=== PATIENT | female | born 1930 | race Caucasian/White ===

== ENCOUNTER 2016-08-26 22:59 | Inpatient (IN) | payer OTHER ==
--- NOTE | ~2016-08-26 | OP ---
Record Of Operation [facility] [address] [place]. [address] NAME: OTIS HENRY : [birth year] STATUS : ADM IN [facility]#: [id number] AGE: 86 ADM/REG DATE : 08/27/16 MR#: [id number] REPORT SERV DATE: 08/27/16 DICTATED BY: CLAUDIA VARGHESE DATE: 08/27/16 REPORT STATUS : Draft TRANSCRIBED BY: MODL DATE: 08/27/16 DATE OF PROCEDURE: 08/27/2016 PREOPERATIVE DIAGNOSIS: Left displaced femoral neck fracture. POSTOPERATIVE DIAGNOSIS: Left displaced femoral neck fracture. PROCEDURE PERFORMED: Left hip hemiarthroplasty, due to fracture. SURGEON: Claudia Varghese M.D. SUPERVISOR SPECIAL EFFECTS: Tariq Walker. ANESTHESIA: General with local infusion. PROCEDURE IN DETAIL: The patient was clearly identified, and after obtaining informed consent, she was brought to the operating room at [facility], where she was induced under general anesthesia, placed carefully in the right lateral decubitus position, and as her left lower extremity and flank were prepped and draped in usual manner. This concluded, after an appropriate time-out procedure was performed. Through an approximately 3 inch incision, the skin was divided, fascial planes were elevated. Hemostasis was obtained with electrocautery and the piriformis was identified, tagged, divided, and retracted over the sciatic nerve deep in the wound. Subsequently, the capsule and some short rotators were then gently divided to expose the hip joint, with the fracture site identified, old hematoma was exposed from the fracture site itself, and internally rotating the hip and thigh, the femoral neck was exposed, and with Homans to protect the surrounding tissues, a femoral neck cut was made and residual bone was removed. The femoral head was then uneventfully removed and the ligamentum and depths of the wound was divided without evidence of pathology. There was no chondromalacia noted. Subsequently, the trialing was felt to be appropriate with a 43 head, and then the proximal femur was exposed, structures posteromedial to the greater trochanter are removed, followed by cookie-cutter, canal finder, lateralizer, and reaming to size 6. Subsequently, carefully broaching to size 6 was excellent fit, fill, and stability. A calcar planer was utilized and subsequently with a standard offset 1.5 length, there was equal leg length, excellent range of motion, stability, and no impingement. The lesser trochanter was at the appropriate position on the ischium, and there was minimal push-pull. This concluded, and the trial was removed. The permanent implants were applied. Copious irrigation was performed. Tranexamic acid was utilized and the joints were then carefully closed in layers including capsule, piriformis, lateral fascia, deep fascia and skin. At which point, the leg was cleansed and dressed. The patient was then allowed to awaken and she was transferred to the recovery room in stable condition having tolerated the procedure well. ESTIMATED BLOOD LOSS: 50 mL. FLUID: 1000 mL. Record Of Operation [facility] [address] [place]. [address] NAME: OTIS HENRY : [birth year] STATUS : ADM IN [facility]#: [id number] AGE: 86 ADM/REG DATE : 08/27/16 MR#: [id number] REPORT SERV DATE: 08/27/16 DICTATED BY: CLAUDIA VARGHESE DATE: 08/27/16 REPORT STATUS : Draft TRANSCRIBED BY: HEMANT DATE: 08/27/16 TOURNIQUET TIME: None. PATHOLOGY: Sent specimen. MICROBIOLOGY: None. COMPLICATIONS: None. SPONGE AND NEEDLE COUNTS: Reportedly correct. ANTIBIOTICS: Administered appropriately preoperatively in order to be discontinued within 23 hours. IMPLANTS: DePuy Hip System, femur Anderson, size 6, +1.5/28/43 bipolar head. WOLF/HEMANT Claudia Varghese M.D. / [id number] CC: Mik Hernadez M.D.
--- NOTE | ~2016-08-26 | DS ---
Discharge Summary [facility] [address] [place]. [address] NAME: OTIS HENRY : [birth year] STATUS : DIS IN PAT#: [id number] AGE: 86 ADM/REG DATE : 08/27/16 MR#: [id number] REPORT SERV DATE: 09/02/16 DICTATED BY: KULWANT SCHREIBER DATE: 09/01/16 REPORT STATUS : Draft TRANSCRIBED BY: MODKirk DATE: 09/01/16 ADMISSION DATE: 08/27/2016 DISCHARGE DATE: 08/31/2016 REASON FOR ADMISSION: This is an 86-year-old female, who had presented after a fall at home with closed head injury and examination in the ER included a left hip x-ray which would show an intertrochanteric fracture. She also hit her head against some concrete in her fall, and a CT scan of the brain did not reveal any acute intracranial pathology. DISCHARGE DIAGNOSES: 1. Left hip fracture status post total hip arthroplasty. 2. Acute blood loss anemia status post surgery. 3. Atrial fibrillation with RVR. 4. Coronary artery disease. 5. Delirium secondary to narcotics, now resolved. 6. Hypothyroid. HOSPITAL COURSE: 1. Left hip fracture. Dr. Varghese was consulted, and he would perform left hip hemiarthroplasty on 08/27/2016. The patient tolerated procedure well, and she had some postop confusion related to anesthesia and narcotics that would resolve. Additionally, she would have some acute blood loss anemia with her hemoglobin dropping down to 8.9, but it was stable and did not require any transfusion. 2. Atrial fibrillation with RVR. The patient postoperatively did go into atrial fibrillation and with rapid ventricular rate. The patient was placed on oral Cardizem as well as beta lorena initially. Then Dr. Somers placed the patient on IV amiodarone drip. They were unable to convert her out of atrial fibrillation with that but we have been able to achieve rate control with oral Cardizem and oral metoprolol. The patient is on Coumadin, leaving the hospital related to the hip surgery and her INR at discharge 1.7. DISCHARGE CONDITION: Stable. DISCHARGE MEDICATIONS: 1. Metoprolol 25 mg p.o. b.i.d. 2. Oxybutynin 5 mg p.o. daily. 3. Warfarin. 4. Ferrous sulfate 300 mg p.o. b.i.d. 5. Synthroid 88 mcg p.o. daily. 6. Aspirin 325 mg p.o. daily. 7. Diltiazem CD 120 mg p.o. b.i.d. 8. Colace 100 mg p.o. b.i.d. DISCHARGE PLAN: The patient is discharged to [facility] for [facility] rehab, will follow up with primary care after rehab, Tomy Dupont Junior. Discharge Summary [address] [place]. [address] NAME: OTIS HENRY : [birth year] STATUS : DIS IN PAT#: [id number] AGE: 86 ADM/REG DATE : 08/27/16 MR#: [id number] REPORT SERV DATE: 09/02/16 DICTATED BY: KULWANT SCHREIBER DATE: 09/01/16 REPORT STATUS : Draft TRANSCRIBED BY: HEMANT DATE: 09/01/16 TDR/HEMANT Kulwant Schreiber APN / [id number] CC: Mik Webber M.D. John Nash, M.D. Ondrej J Lisy, M.D.
--- NOTE | ~2016-08-26 | HP ---
History And Physical [facility] [address] [facility] [place]. [address] NAME: OTIS HENRY : [birth year] STATUS : ADM IN [facility]#: [id number] AGE: 86 ADM/REG DATE : 08/27/16 MR#: [id number] REPORT SERV DATE: 08/27/16 DICTATED BY: LUCAS CASTANO DATE: 08/27/16 REPORT STATUS : Draft TRANSCRIBED BY: MODL DATE: 08/27/16 DATE OF ADMISSION: 08/26/2016 CHIEF COMPLAINT: Fall at home today and closed head injury. HISTORY OF PRESENT ILLNESS: This is an 86-year-old female, who presents to the emergency room at [facility] with the above-mentioned complaint. History is obtained from the patient, her daughter who is at bedside, and reviewing data available on the Spiration system. According to available data, Ms. Henry was at home in her usual state of health when she went out to the concrete porch where she usually hangs up her washed clothes. She was doing this today and apparently got out of her wheelchair and while hanging her clothes, one of her legs suddenly gave way. She fell to the concrete floor and started experiencing some pain, but unfortunately was not able to get up at all. She scooted into the house, was able to call for help, and subsequently the patient was brought to the emergency room via EMS. In the emergency room, initial workup including an x-ray of her hip showed a left intertrochanteric fracture. When she fell down, she also hit her head against the concrete and in the emergency room, a CT scan of the brain did not reveal any acute intracranial pathology. The ER had spoken with Dr. Varghese, who requested admission under the Hospitalist Service and he would consult tomorrow. At the time of my evaluation, Ms. Henry denied any chest pain, palpitations, or orthopnea. She was very pleasant and was entertaining to talk to. She denied any cough, fever, chills, nausea, vomiting, or diarrhea. She has not had any hematemesis, hematochezia, or hematuria. No other history of recent travel or exposures. PAST MEDICAL HISTORY: Significant for history of essential hypertension, coronary artery disease with history of myocardial infarction, hypothyroidism. SOCIAL HISTORY: She does not smoke, drink, or use recreational drugs. FAMILY HISTORY: Noncontributory. MEDICATIONS: At home were reviewed by me in the chart today and reordered by me. REVIEW OF SYSTEMS: As in history of present illness. All other systems were reviewed in detail and are quite unremarkable. PHYSICAL EXAMINATION: GENERAL: This is a pleasant 86-year-old, not in any acute distress. HEENT: Her head is atraumatic, normocephalic. She is alert, awake, oriented to time, place, and person. Pupils are equal, reacting to light and accommodating. External ocular muscles are intact. Membranes are moist and pink. Sclerae are nonicteric. History And Physical [address] [address] NAME: OTIS HENRY : [birth year] STATUS : ADM IN [facility]#: [id number] AGE: 86 ADM/REG DATE : 08/27/16 MR#: [id number] REPORT SERV DATE: 08/27/16 DICTATED BY: LUCAS CASTANO DATE: 08/27/16 REPORT STATUS : Draft TRANSCRIBED BY: HEMANT DATE: 08/27/16 NECK: Supple with no jugular venous distention, lymphadenopathy, or thyromegaly. LUNGS: Clear to auscultation with no wheezes, rubs, or crackles. HEART: Heart sounds were regular with no murmurs, rubs, or gallops. ABDOMEN: Soft, nontender. Bowel sounds are present. EXTREMITIES: Showed no cyanosis, clubbing, or edema. NEUROLOGIC: Grossly intact. No focal sensory or motor deficits. Higher functions appeared intact. VITAL SIGNS: Today showed a temperature of 98.7, pulse 86, respirations 16 a minute, blood pressure was 170/78, oxygen saturations were 98%, breathing 2 L of oxygen via nasal cannula. LABORATORY DATA: Reviewed on the Spiration system showed a sodium of 140, potassium 4.3, chloride 107, CO2 of 26, BUN was 19 with a creatinine of 1.14. We have no prior records here. Blood glucose was 130. CBC showed a white blood cell count of 6100, hemoglobin was 11, hematocrit 33.5, and platelet count was 162,000. Troponin was 0.02 today. Prothrombin time was 14.7 with an INR of 1.2. Urinalysis was not done. Films of the x-ray of her hip were reviewed by me on the PACS today and CT of the brain was also reviewed. There is left- sided intertrochanteric fracture. CT of the brain did not reveal any acute intracranial pathology. A 12-lead EKG done in the emergency room was reviewed and interpreted by me. There is normal sinus rhythm at a rate of [address] changes. IMPRESSION: 1. Fall at home. 2. Closed head injury. 3. Left hip pain. 4. Left intertrochanteric fracture. 5. Hypertension. 6. Coronary artery disease with myocardial infarction. 7. Hypothyroidism. PLAN: We will admit Ms. Henry to the Hospitalist Service to the med/surg floor for close monitoring. We will keep her n.p.o. for now, offer pain control with intravenous Dilaudid in small doses on an as-needed basis, and go ahead and consult Dr. Gorge Varghese to see her in the morning. We will go ahead and continue all other medications and treatments at this time. We will follow this with chemistry in the morning along with CBC and TSH as well. I have discussed the above plans with the patient and the patient's daughter. Their questions were answered and they are agreeable to the above recommendations. Further recommendations will follow after Dr. Varghese has had a chance to see the patient. Hospitalist Service will be following her during her stay here. /HEMANT Lucas Castano M.D. History And Physical [address] [address] NAME: OTIS HENRY : [birth year] STATUS : ADM IN PAT#: [id number] AGE: 86 ADM/REG DATE : 08/27/16 MR#: [id number] REPORT SERV DATE: 08/27/16 DICTATED BY: LUCAS CASTANO DATE: 08/27/16 REPORT STATUS : Draft TRANSCRIBED BY: HEMANT DATE: 08/27/16 / [id number] CC: Tomy Dupont M.D.
--- NOTE | ~2016-08-26 | CN ---
Consultation Report [facility] [address] [place]. [address] NAME: OTIS HENRY : [birth year] STATUS : ADM IN PAT#: [id number] AGE: 86 ADM/REG DATE : 08/27/16 MR#: [id number] REPORT SERV DATE: 08/30/16 DICTATED BY: OKSANA DRIVER DATE: 08/29/16 REPORT STATUS : Draft TRANSCRIBED BY: HEMANT DATE: 08/29/16 CARDIOLOGY CONSULTATION DATE OF CONSULTATION: LOCATION: Room 422. REFERRING REASON: Atrial fibrillation at the time of left hip surgery. HISTORY OF PRESENT ILLNESS: This is a pleasant 86-year-old white female with poor functional performance status, who resides at home with her family. She has been wheelchair-bound for the last six months. She has very poor balance, but is still trying to do few steps occasionally. She has frequent falls according to her daughter that I had the opportunity to interview, up to six over the last six months with some trauma. With the most recent one, she fell a few days ago on her head. There was initial concern for stroke and bleeding, but CT of the brain was negative for bleeding, some chronic atrophy. She was in sinus rhythm initially. She does not have a documented prior history of atrial fibrillation. At the time of the left hip surgery on 08/[address] Varghese, when she developed left hip fracture, she went into atrial fibrillation and remained in atrial fibrillation since then. She is not on anticoagulation, but there was an attempt to rate control her. She has some decline in hemoglobin from 11.5 to 8.9 currently. Also, her platelet count is borderline 100,000. No obvious bleeding. She has not required transfusion yet. The patient denied any palpitations, chest pain, or shortness of breath. She is a poor historian. Most of the discussion was done with several family members including daughter. The patient reportedly had normal coronary arteriogram in 2000 elsewhere without clear evidence of coronary artery disease. The rest of review of systems is negative. PAST MEDICAL HISTORY: 1. Frequent falls with poor balance. 2. Poor functional performance, the patient is currently wheelchair bound. 3. Hypertension. 4. Reportedly normal coronary arteriogram in 2001 elsewhere. 5. History of hypothyroidism. 6. Remote history of hysterectomy. 7. Remote history of lumbar spine surgery. ALLERGIES: SULFA HOME MEDICATIONS: Amlodipine 5 mg once a day, Synthroid, Prinivil 10 mg once a day, oxybutynin, Tylenol, Dilaudid p.r.n., Phenergan, and albuterol. Currently, she was started on Cardizem short-acting 30 mg q.6 hours and metoprolol 25 mg q.8 hours. SOCIAL HISTORY: The patient is . She is now wheelchair bound. Lives with her family. Walks occasionally with a walker, but has frequent falls. She has a remote history Consultation Report [address] [place]. [address] NAME: OTIS HENRY : [birth year] STATUS : ADM IN [facility]#: [id number] AGE: 86 ADM/REG DATE : 08/27/16 MR#: [id number] REPORT SERV DATE: 08/30/16 DICTATED BY: OKSANA DRIVER DATE: 08/29/16 REPORT STATUS : Draft TRANSCRIBED BY: HEMANT DATE: 08/29/16 of smoking, 40 years ago, smoked for several years. Denies drinking alcohol or using street drugs. FAMILY HISTORY: Negative for sudden cardiac , premature coronary artery disease in the family. PHYSICAL EXAMINATION: GENERAL: Elderly female, oriented x3, is sitting on a chair. VITAL SIGNS: Blood pressure 130/67, heart rate 100 to 110, irregularly irregular, atrial fibrillation. HEENT - Pupils reactive to light and accommodation. Moist mucosa membrane. NECK: No JVD. Normal carotid upstroke. No carotid bruits. LUNGS: Decreased breath sounds, but no crackles. ABDOMEN: Distended, nontender. EXTREMITIES: Lower extremity decreased pedal pulses bilaterally, but no edema. SKIN: Warm with normal turgor. MUSCULOSKELETAL - No kyphosis. NEURO/PSY - Alert and oriented. Nonfocal. DATA: CBC remarkable for hemoglobin of 8.9, platelet count of 100,000. Troponin is negative. Electrolytes within normal limits. A CT of the brain as above. Initial electrocardiogram revealed normal sinus rhythm, 83 beats per minute on 08/26. On 08/27, she went into atrial fibrillation with rapid ventricular response with nonspecific ST-segment changes. Currently, she is in atrial fibrillation with rapid ventricular response on monitor. Echocardiogram on 08/29, interpreted by myself, revealed preserved systolic function with EF 55% with mild LVH and moderate left atrial enlargement. There is mild aortic valve regurgitation. ASSESSMENT AND PLAN: 1. Status post traumatic fall with left hip fracture. 2. Status post left hip surgery. 3. Frequent falls and poor balance. 4. Atrial fibrillation with rapid ventricular response, currently asymptomatic. 5. Anemia. Under this picture, we reviewed the situation with the patient and her several family members and Dr. Anderson. Our goal should be rate control atrial fibrillation. Her blood pressure now is normal. She is not a good candidate for anticoagulation due to the frequent traumatic falls and now anemia postoperatively. Cardioversion would require anticoagulation. We may consider intravenous amiodarone in an attempt to convert her back to sinus rhythm. If this will be unsuccessful, we may need to continue rate control approach. She should be using aspirin if okay with Surgery. Fortunately, she has preserved systolic function. She is now asymptomatic. Consultation Report [address] [place]. [address] NAME: OTIS HENRY : [birth year] STATUS : ADM IN [facility]#: [id number] AGE: 86 ADM/REG DATE : 08/27/16 MR#: [id number] REPORT SERV DATE: 08/30/16 DICTATED BY: OKSANA DRIVER DATE: 08/29/16 REPORT STATUS : Draft TRANSCRIBED BY: HEMANT DATE: 08/29/16 MANI/HEMANT Oksana Driver M.D. / [id number] CC: Kar Jackson M.D.
[2016-08-26 22:41] LABS: BASOPHILS 0 %; EOSINOPHILS 0.3 %; EOSINOPHILS ABSOLUTE 0.02 10/3/uL (0.0-0.53); HEMATOCRIT 33.5 % (36.0-48.0); IMMATURE GRANULOCYTES 0.2 %; IMMATURE GRANULOCYTES ABSOLUTE 0.01 10/3/uL (0.0-0.11); LYMPHOCYTES ABSOLUTE 1.04 10/3/uL (0.67-4.30); MEAN CORPUS HGB CONC 32.8 g/dL (32.0-36.0); MEAN CORPUSCULAR HEMOGLOB 30.2 pg (26.0-34.0); MEAN PLATELET VOLUME 11.1 fL (9.2-13.0); MONOCYTES ABSOLUTE 0.55 10/3/uL (0.21-1.20); NEUTROPHILS 73.5 %; NEUTROPHILS ABSOLUTE 4.48 10/3/uL (2.02-8.40); PLATELET COUNT 152 10/3/uL (150-400); RBC DISTRIBUTION WIDTH 16.5 % (12.0-16.0); RED CELL COUNT 3.64 10/6/uL (4.0-5.6); WHITE BLOOD CELLS 6.1 10/3/uL (4.5-10.5)
[2016-08-26 22:42] LABS: MANUAL DIFF NO %
[2016-08-26 22:53] LABS: INTERNATIONAL NORMAL RATI 1.2 UNITS (-); PARTIAL THROMBO TIME 25.2 SEC (22.5-37.2); PROTIME (NOT ORD) 14.7 SEC (12.0-14.5)
[2016-08-26 22:56] LABS: BUN (BLOOD UREA NITROGEN) 19 MG/DL (6-23); CALCIUM, SERUM 9.3 MG/DL (8.5-10.4); CHEST PAIN PROFILE TAT 0 Hrs 21 Mins; CHLORIDE, SERUM 107 MMOL/L (96-112); CO2 (CARBON DIOXIDE) 26 MMOL/L (24-34); CREATININE 1.14 MG/DL (0.55-1.02); GFR AFRICAN AMERICAN 50 ML/MIN (>=60); GFR NON AFRICAN AMERICAN 43 ML/MIN (>=60); GLUCOSE, SERUM 130 MG/DL (60-99); POTASSIUM, SERUM 4.3 MMOL/L (3.5-5.3); SODIUM, SERUM 140 MMOL/L (135-148); TROPONIN I <0.02 NG/ML (<0.05)
[2016-08-26] MEDS ORDERED: DITRO5 PO (23:47)
[2016-08-26] MEDS ORDERED: PRIN10 PO (23:47)
[2016-08-26] MEDS ORDERED: LEVOTHYROXIN88 MCG PO (23:48)
[2016-08-26] MEDS ORDERED: NITROSTAT0.4 MG SL (23:48)
[2016-08-26] MEDS ORDERED: NORV5 PO (23:48)
[2016-08-27 04:15] LABS: BASOPHILS 0 %; EOSINOPHILS 1.6 %; EOSINOPHILS ABSOLUTE 0.06 10/3/uL (0.0-0.53); HEMATOCRIT 31.4 % (36.0-48.0); HEMOGLOBIN 10.2 g/dL (12.0-16.0); IMMATURE GRANULOCYTES 0.3 %; IMMATURE GRANULOCYTES ABSOLUTE 0.01 10/3/uL (0.0-0.11); LYMPHOCYTES 27.2 %; MEAN CORPUS HGB CONC 32.5 g/dL (32.0-36.0); MEAN CORPUSCULAR HEMOGLOB 30.3 pg (26.0-34.0); MEAN CORPUSCULAR VOLUME 93.2 fL (80-100); MEAN PLATELET VOLUME 10.5 fL (9.2-13.0); MONOCYTES 12.2 %; MONOCYTES ABSOLUTE 0.45 10/3/uL (0.21-1.20); NEUTROPHILS 58.7 %; NEUTROPHILS ABSOLUTE 2.16 10/3/uL (2.02-8.40); PLATELET COUNT 123 10/3/uL (150-400); RBC DISTRIBUTION WIDTH 16.8 % (12.0-16.0); RED CELL COUNT 3.37 10/6/uL (4.0-5.6); WHITE BLOOD CELLS 3.7 10/3/uL (4.5-10.5)
[2016-08-27 04:18] LABS: MANUAL DIFF NO %
[2016-08-27 04:39] LABS: BUN (BLOOD UREA NITROGEN) 18 MG/DL (6-23); CALCIUM, SERUM 8.6 MG/DL (8.5-10.4); CHLORIDE, SERUM 107 MMOL/L (96-112); CO2 (CARBON DIOXIDE) 26 MMOL/L (24-34); CREATININE 0.94 MG/DL (0.55-1.02); GFR AFRICAN AMERICAN 63 ML/MIN (>=60); GFR NON AFRICAN AMERICAN 54 ML/MIN (>=60); GLUCOSE, SERUM 106 MG/DL (60-99); PHOSPHORUS, SERUM 2.9 MG/DL (2.5-4.5); POTASSIUM, SERUM 4.2 MMOL/L (3.5-5.3); SODIUM, SERUM 142 MMOL/L (135-148)
[2016-08-27 06:47] LABS: ASCORBIC ACID (UR NOT ORDER) NEG (NEG); BILIRUBIN, URINE NEGATIVE (NEG); KETONE, URINE NEGATIVE (NEG); LEUKOCYTE ESTERASE(NOT OR NEG (NEG); WBC (NOT ORDERED) (RFLEX) < 1 (0-5)
[2016-08-27 10:47] LABS: INTERNATIONAL NORMAL RATI 1.2 UNITS (-); PROTIME (NOT ORD) 14.7 SEC (12.0-14.5)
[2016-08-28 04:46] LABS: BASOPHILS 0 %; EOSINOPHILS 0 %; HEMOGLOBIN 8.7 g/dL (12.0-16.0); IMMATURE GRANULOCYTES 0.3 %; IMMATURE GRANULOCYTES ABSOLUTE 0.02 10/3/uL (0.0-0.11); LYMPHOCYTES 7.4 %; LYMPHOCYTES ABSOLUTE 0.58 10/3/uL (0.67-4.30); MEAN CORPUSCULAR HEMOGLOB 30.3 pg (26.0-34.0); MEAN CORPUSCULAR VOLUME 94.8 fL (80-100); MEAN PLATELET VOLUME 10.4 fL (9.2-13.0); MONOCYTES 10.8 %; MONOCYTES ABSOLUTE 0.84 10/3/uL (0.21-1.20); NEUTROPHILS 81.5 %; NEUTROPHILS ABSOLUTE 6.37 10/3/uL (2.02-8.40); PLATELET COUNT 110 10/3/uL (150-400); RED CELL COUNT 2.87 10/6/uL (4.0-5.6)
[2016-08-28 04:51] LABS: INTERNATIONAL NORMAL RATI 1.2 UNITS (-); PROTIME (NOT ORD) 15.3 SEC (12.0-14.5)
[2016-08-28 04:53] LABS: HEMATOCRIT 27.2 % (36.0-48.0); MANUAL DIFF NO %; WHITE BLOOD CELLS 7.8 10/3/uL (4.5-10.5)
[2016-08-28 05:01] LABS: BUN (BLOOD UREA NITROGEN) 16 MG/DL (6-23); CHLORIDE, SERUM 105 MMOL/L (96-112); CO2 (CARBON DIOXIDE) 23 MMOL/L (24-34); CREATININE 1.02 MG/DL (0.55-1.02); GFR AFRICAN AMERICAN 57 ML/MIN (>=60); GFR NON AFRICAN AMERICAN 49 ML/MIN (>=60); POTASSIUM, SERUM 4.2 MMOL/L (3.5-5.3); SODIUM, SERUM 138 MMOL/L (135-148)
[2016-08-28 05:02] LABS: CALCIUM, SERUM 7.4 MG/DL (8.5-10.4); GLUCOSE, SERUM 129 MG/DL (60-99)
[2016-08-29 07:00] LABS: BASOPHILS 0.1 %; BASOPHILS ABSOLUTE 0.01 10/3/uL (0.0-0.16); EOSINOPHILS 0.9 %; EOSINOPHILS ABSOLUTE 0.06 10/3/uL (0.0-0.53); HEMATOCRIT 27.9 % (36.0-48.0); HEMOGLOBIN 8.9 g/dL (12.0-16.0); IMMATURE GRANULOCYTES 0.1 %; IMMATURE GRANULOCYTES ABSOLUTE 0.01 10/3/uL (0.0-0.11); LYMPHOCYTES 12.9 %; LYMPHOCYTES ABSOLUTE 0.89 10/3/uL (0.67-4.30); MEAN CORPUS HGB CONC 31.9 g/dL (32.0-36.0); MEAN CORPUSCULAR HEMOGLOB 30.5 pg (26.0-34.0); MEAN CORPUSCULAR VOLUME 95.5 fL (80-100); MEAN PLATELET VOLUME 11.3 fL (9.2-13.0); MONOCYTES 10.6 %; MONOCYTES ABSOLUTE 0.73 10/3/uL (0.21-1.20); NEUTROPHILS 75.4 %; NEUTROPHILS ABSOLUTE 5.19 10/3/uL (2.02-8.40); PLATELET COUNT 100 10/3/uL (150-400); RBC DISTRIBUTION WIDTH 17.1 % (12.0-16.0); RED CELL COUNT 2.92 10/6/uL (4.0-5.6); WHITE BLOOD CELLS 6.9 10/3/uL (4.5-10.5)
[2016-08-29 07:01] LABS: MANUAL DIFF NO %
[2016-08-29 07:12] LABS: BUN (BLOOD UREA NITROGEN) 14 MG/DL (6-23); CALCIUM, SERUM 8.1 MG/DL (8.5-10.4); CHLORIDE, SERUM 112 MMOL/L (96-112); CO2 (CARBON DIOXIDE) 22 MMOL/L (24-34); GFR AFRICAN AMERICAN 66 ML/MIN (>=60); GFR NON AFRICAN AMERICAN 57 ML/MIN (>=60); GLUCOSE, SERUM 95 MG/DL (60-99); POTASSIUM, SERUM 4.5 MMOL/L (3.5-5.3); SODIUM, SERUM 142 MMOL/L (135-148)
[2016-08-29 07:19] LABS: INTERNATIONAL NORMAL RATI 1.3 UNITS (-); PROTIME (NOT ORD) 16.3 SEC (12.0-14.5)
[2016-08-30 04:08] LABS: BASOPHILS 0.2 %; BASOPHILS ABSOLUTE 0.01 10/3/uL (0.0-0.16); EOSINOPHILS 0.8 %; EOSINOPHILS ABSOLUTE 0.05 10/3/uL (0.0-0.53); HEMOGLOBIN 8.1 g/dL (12.0-16.0); IMMATURE GRANULOCYTES 0.2 %; IMMATURE GRANULOCYTES ABSOLUTE 0.01 10/3/uL (0.0-0.11); LYMPHOCYTES 18.9 %; LYMPHOCYTES ABSOLUTE 1.19 10/3/uL (0.67-4.30); MEAN CORPUS HGB CONC 32.3 g/dL (32.0-36.0); MEAN CORPUSCULAR HEMOGLOB 30.5 pg (26.0-34.0); MEAN CORPUSCULAR VOLUME 94.4 fL (80-100); MEAN PLATELET VOLUME 10.7 fL (9.2-13.0); MONOCYTES 6.4 %; NEUTROPHILS 73.5 %; NEUTROPHILS ABSOLUTE 4.62 10/3/uL (2.02-8.40); PLATELET COUNT 93 10/3/uL (150-400); RED CELL COUNT 2.66 10/6/uL (4.0-5.6); WHITE BLOOD CELLS 6.3 10/3/uL (4.5-10.5)
[2016-08-30 04:17] LABS: HEMATOCRIT 25.1 % (36.0-48.0)
[2016-08-30 04:18] LABS: MANUAL DIFF NO %
[2016-08-30 04:19] LABS: INTERNATIONAL NORMAL RATI 1.4 UNITS (-); PROTIME (NOT ORD) 17.4 SEC (12.0-14.5)
[2016-08-30 04:29] LABS: BUN (BLOOD UREA NITROGEN) 15 MG/DL (6-23); CHLORIDE, SERUM 108 MMOL/L (96-112); CO2 (CARBON DIOXIDE) 22 MMOL/L (24-34); CREATININE 0.86 MG/DL (0.55-1.02); GFR AFRICAN AMERICAN 70 ML/MIN (>=60); GFR NON AFRICAN AMERICAN 60 ML/MIN (>=60); POTASSIUM, SERUM 4.5 MMOL/L (3.5-5.3); SODIUM, SERUM 138 MMOL/L (135-148)
[2016-08-30 04:42] LABS: GLUCOSE, SERUM 134 MG/DL (60-99)
[2016-08-31 05:50] LABS: BASOPHILS 0 %; EOSINOPHILS 1.4 %; EOSINOPHILS ABSOLUTE 0.07 10/3/uL (0.0-0.53); HEMATOCRIT 27.5 % (36.0-48.0); HEMOGLOBIN 8.9 g/dL (12.0-16.0); IMMATURE GRANULOCYTES 0.2 %; IMMATURE GRANULOCYTES ABSOLUTE 0.01 10/3/uL (0.0-0.11); LYMPHOCYTES 15.4 %; LYMPHOCYTES ABSOLUTE 0.79 10/3/uL (0.67-4.30); MEAN CORPUS HGB CONC 32.4 g/dL (32.0-36.0); MEAN CORPUSCULAR VOLUME 92.6 fL (80-100); MEAN PLATELET VOLUME 11.3 fL (9.2-13.0); MONOCYTES 8.8 %; MONOCYTES ABSOLUTE 0.45 10/3/uL (0.21-1.20); NEUTROPHILS 74.2 %; NEUTROPHILS ABSOLUTE 3.81 10/3/uL (2.02-8.40); PLATELET COUNT 110 10/3/uL (150-400); RBC DISTRIBUTION WIDTH 17.1 % (12.0-16.0); RED CELL COUNT 2.97 10/6/uL (4.0-5.6); WHITE BLOOD CELLS 5.1 10/3/uL (4.5-10.5)
[2016-08-31 05:52] LABS: MANUAL DIFF NO %
[2016-08-31 05:58] LABS: INTERNATIONAL NORMAL RATI 1.7 UNITS (-); PROTIME (NOT ORD) 19.4 SEC (12.0-14.5)
[2016-08-31 06:06] LABS: BUN (BLOOD UREA NITROGEN) 12 MG/DL (6-23); CHLORIDE, SERUM 111 MMOL/L (96-112); CO2 (CARBON DIOXIDE) 22 MMOL/L (24-34); CREATININE 0.78 MG/DL (0.55-1.02); GFR AFRICAN AMERICAN 79 ML/MIN (>=60); GFR NON AFRICAN AMERICAN 68 ML/MIN (>=60); GLUCOSE, SERUM 113 MG/DL (60-99); POTASSIUM, SERUM 4.2 MMOL/L (3.5-5.3); SODIUM, SERUM 143 MMOL/L (135-148)
== END 2016-08-31 19:17 | DRG 470 ==
LOC: ER 22:59 → 4SO 08-27 01:12 → 7NO 08-29 20:54
PROVIDERS: Emergency Medicine; Internal Medicine; Internal Medicine Pulmonary Disease; Nurse Practitioner Gerontology; Orthopaedic Surgery
PROC: 0SRS03Z Replacement of Left Hip Joint, Femoral Surface with Ceramic Synthetic Substitute, Open Approach (ICD-10-PCS; principal; 2016-08-27 10:30)
DX: S72.142A Displaced intertrochanteric fracture of left femur, initial encounter for closed fracture (principal); I48.91 Unspecified atrial fibrillation; E83.42 Hypomagnesemia; D62 Acute posthemorrhagic anemia; W19.XXXA Unspecified fall, initial encounter; Y92.009 Unspecified place in unspecified non-institutional (private) residence as the place of occurrence of the external cause; E03.9 Hypothyroidism, unspecified; I10 Essential (primary) hypertension; I25.10 Atherosclerotic heart disease of native coronary artery without angina pectoris; R41.0 Disorientation, unspecified; T50.7X5A Adverse effect of analeptics and opioid receptor antagonists, initial encounter; Z91.81 History of falling; Z99.3 Dependence on wheelchair
CPT/HCPCS: 36415; 70450; 71010; 72170; 73502-LT; 80048; 81001; 82962; 83735; 84100; 84443; 84484; 85025; 85610; 85730; 86850; 86900; 86901; 87641; 88305; 88311; 93005; 93306; 96374; 97110-GP; 97116-GP; 97161-GP; 97166-GO; 97530-GP; 99285; A9270-GY; C1776; J0282; J0690; J1170; J1885; J1940; J2270; J2274; J2405; J2710; J2795; J3010; J3370; J3473; P9045

== ENCOUNTER 2016-10-10 16:33 | Inpatient (IN) | payer OTHER ==
--- NOTE | ~2016-10-10 | DS ---
Discharge Summary [facility] [address] [place]. [address] NAME: OTIS HENRY : [birth year] STATUS : DIS IN PAT#: [id number] AGE: 86 ADM/REG DATE : 10/10/16 MR#: [id number] REPORT SERV DATE: 10/16/16 DICTATED BY: JAY PINEDA DATE: 10/15/16 REPORT STATUS : Draft TRANSCRIBED BY: MODL DATE: 10/15/16 ADMISSION DATE: 10/10/2016 DISCHARGE DATE: 10/15/2016 DISCHARGE DIAGNOSES: 1. Failure to thrive. 2. Methicillin-sensitive staphylococcus aureus urinary tract infection. 3. Atrial fibrillation with rapid ventricular response. 4. Encephalopathy as well as decreased level of consciousness on presentation, much improved. 5. Recent hip surgery. CONSULTANTS: Cardiology. PROCEDURES: None. HOSPITAL COURSE: This is an 86-year-old lady who was admitted to the hospital with decreasing level of consciousness and encephalopathy. For details, please refer to the excellent H and P by Dr. Rios. In summary, the patient was admitted and was given supportive care as well as empiric antibiotic therapy for the urinary tract infection. Of note, the patient never was really febrile, and the patient never had leukocytosis, but she was empirically treated any way along with the IV fluids. The patient was in an atrial fibrillation with RVR when she first presented which was treated with Cardizem drip. The patient was seen by Cardiology, who agreed with rate control. The patient did have a fairly recent echocardiogram that was benign and thus repeat echocardiogram was not checked. Also, TSH was checked and it was benign. The patient appeared extremely sick when she first presented and there was an extensive family discussion about the patient's end of life care, which the family was open to, but it was decided that we would give another try at trying to get the patient better. Miraculously, the patient did improve with supportive care as well as antibiotic therapy over the next few days. Whereas the patient was basically unconscious and unresponsive when she first presented. On the day of discharge, the patient was wide awake and was able to make a good conversation with the family. The family is still aware that the patient may go through with waxing and waning course of illness given her extreme age and the family is open to end of life care discussion for the future. The patient's urine culture did come back positive for MSSA, which at this point in time, I am not really sure if it, represents a true infection, however, based on the fact that the patient did have a significant clinical improvement, I will continue antibiotics up to finish a one-week course. The patient is now being discharged to home with close outpatient followup instructions. Of note, the patient was seen by Physical Therapy, who recommended a senior care facility at discharge, however, the patient had already used up her [facility] days and the family actually preferred to take the patient home. The patient is thus going home instead. DISPOSITION: Home. DISCHARGE MEDICATIONS: Cardizem 120 mg p.o. daily as a new medication. Otherwise, no Discharge Summary [address] [address] NAME: OTIS HENRY : [birth year] STATUS : DIS IN PAT#: [id number] AGE: 86 ADM/REG DATE : 10/10/16 MR#: [id number] REPORT SERV DATE: 10/16/16 DICTATED BY: JAY PINEDA DATE: 10/15/16 REPORT STATUS : Draft TRANSCRIBED BY: HEMANT DATE: 10/15/16 changes. FOLLOWUP: Please follow up with PCP in the next one to two weeks. Total of 40 minutes spent in coordinating this patient's discharge today. RIVAS/HEMANT Jay Pineda MD / [id number] CC: Jay Pineda MD
--- NOTE | ~2016-10-10 | CN ---
Consultation Report [facility] [address] [place]. [address] NAME: JANE HENRY : [birth year] STATUS : ADM IN [facility]#: [id number] AGE: 86 ADM/REG DATE : 10/10/16 MR#: [id number] REPORT SERV DATE: 10/11/16 DICTATED BY: ABEL GOMEZ DATE: 10/10/16 REPORT STATUS : Draft TRANSCRIBED BY: HEMANT DATE: 10/10/16 DATE OF CONSULTATION: REASON FOR EVALUATION: Jane Henry is an 86-year-old female, who is referred for management of atrial fibrillation with rapid ventricular response. REFERRING PHYSICIAN: Giovana Rios M.D. CVD PHYSICIAN: Dr. Michael Somers. HISTORY OF PRESENT ILLNESS: Mrs. Jane Henry first came to our attention when she was seen for left hip fracture on 08/27/[address] Varghese and went into atrial fibrillation. She had remained in atrial fibrillation since then on rate control. She had been discharged to a rehab facility on 08/31/2016 and stayed there until 09/20/2016 and then was sent home. She has had Home Health and rehab at home, but a week ago began to get much weaker and had decline in mental status. The family brought her here for further evaluation. REVIEW OF SYSTEMS: Not obtainable. SOCIAL HISTORY: She has strong family support. She does not drink or smoke. She is fairly incapacitated and quite frail. She has had frequent falls when she tries to walk with a walker, and therefore, is not felt to be a candidate for anticoagulation. PHYSICAL EXAMINATION: VITAL SIGNS: Blood pressure 141/72, heart rate is 126. GENERAL: She is cooperative and does respond. LUNGS: She has symmetrical expansion of her lungs without rales. HEART: Rhythm is irregular, precordium is quiet. S1, S2 are normal. ABDOMEN: Soft. EXTREMITIES: Warm. LABORATORY EVALUATION: Echocardiogram 08/29/2016 showed an ejection fraction of 55%. ASSESSMENT: At this time, she is a DNR and we will proceed with medical treatment only. We will begin to try to get better rate control with Cardizem. We will also continue her beta lorena. We will monitor carefully for bradycardia. KORY/HEMANT Abel Gomez M.D. Consultation Report [address] [place] [address] NAME: JANE HENRY : [birth year] STATUS : ADM IN PAT#: [id number] AGE: 86 ADM/REG DATE : 10/10/16 MR#: [id number] REPORT SERV DATE: 10/11/16 DICTATED BY: ABEL GOMEZ DATE: 10/10/16 REPORT STATUS : Draft TRANSCRIBED BY: MODL DATE: 10/10/16 / [id number] CC: Giovana Rios M.D.
--- NOTE | ~2016-10-10 | CN ---
Consultation Report [facility] [address] [place]. [address] NAME: JANE HENRY : [birth year] STATUS : ADM IN [facility]#: [id number] AGE: 86 ADM/REG DATE : 10/10/16 MR#: [id number] REPORT SERV DATE: 10/11/16 DICTATED BY: ABEL GOMEZ DATE: 10/10/16 REPORT STATUS : Draft TRANSCRIBED BY: MODL DATE: 10/10/16 DATE OF CONSULTATION: 10/10/2016 REASON FOR CONSULTATION: Mrs. Jane Henry is an 86-year-old female who is referred for management of atrial fibrillation with rapid ventricular response. CVD PHYSICIAN: Michael Somers M.D. HISTORY OF PRESENT ILLNESS: Mrs. Hnery was first brought to attention after hip surgery by Dr. Varghese, on 08/27/2016 when she developed atrial fibrillation. At that time, rate control strategy was attempted. She is a poor historian and felt to be a poor candidate for anticoagulation. KORY/HEMANT Abel Gomez M.D. / [id number] CC: Giovana Rios M.D.
--- NOTE | ~2016-10-10 | HP ---
History And Physical [facility] [address] [place]. [address] NAME: OTIS HENRY : [birth year] STATUS : ADM IN [facility]#: [id number] AGE: 86 ADM/REG DATE : 10/10/16 MR#: [id number] REPORT SERV DATE: 10/10/16 DICTATED BY: RIGOBERTO KELLER DATE: 10/10/16 REPORT STATUS : Draft TRANSCRIBED BY: MODKirk DATE: 10/10/16 DATE OF ADMISSION: 10/10/2016 HISTORY OF PRESENT ILLNESS: The patient is a direct transfer from [facility] in [place]. I personally spoke with the transferring physician, Dr. Bro, and she reported that the patient presented to their facility with severe lethargy and decreased level of consciousness which was happening for the last three to four days as well as she was not eating or drinking much, and according to the patient's family, she had hip fracture in August, and she was admitted to [facility] when she had a left hip fracture surgery, hip arthroplasty, and after it, she was discharged to inpatient rehab. She was doing well until several days when she became lethargic, was unable to ambulate, as well as was not eating much and very weak and very lethargic. The patient's daughter at the bedside reported that she was on Coumadin and the home health nurse presented to them and reported that she is lethargic, not doing well and needs to be transferred to the hospital. At the [facility], she had several studies done which include her basic metabolic profile which showed sodium 139, potassium 4.2, chloride 112, carbon dioxide 17, BUN 22, creatinine 0.99, blood sugar 116, calcium 8.7. Her creatinine 0.99, albumin was 3, ALT was 55, AST was 70. Her troponin was 0.01. Albumin to globulin ratio was 0.8. White count 3.7, hemoglobin 11.6, hematocrit was 36.2, platelet count was 106. Her urinalysis showed large amount of leukocyte esterase, more than 50 white cells, 6 to 15 red cells, and 2+ bacteria. For the altered mental status, she had the CT of the brain done at [facility] which showed no acute hemorrhage, no any other abnormality. The ventricles and sulci are prominent representing atrophic changes expected for age, otherwise unremarkable. Her INR was 3.64 while at [facility]. Chest x-ray showed normal heart size, unremarkable pulmonary vasculature, clear lungs, blunting of the left costophrenic angle. The patient had the Lim placed at the [facility]. She had also EKG done which was consistent with atrial fibrillation with rapid ventricular response and low QRS voltages. Nonspecific T-waves abnormality. PAST MEDICAL HISTORY: Known for hypertension, hypothyroidism, history of atrial fibrillation, started during hip surgery, questionable history of coronary artery disease. Daughter reported that she had it like maybe many years ago, history of delirium secondary to narcotics. Recent left intertrochanteric fracture of the hip and also closed head injury during fall at the time of the hip fracture. HOME MEDICATIONS: Include amlodipine 5 mg a day, ferrous sulfate 325 p.o. b.i.d., levothyroxine 88 mcg a lisinopril 10 mg, metoprolol 25 a day, oxybutynin 5 a day, Coumadin 4 mg p.o. daily. ALLERGIES: SHE IS ALLERGIC TO SULFA AND CODEINE. SOCIAL HISTORY: No smoking. No alcohol. No recreational drug use. FAMILY HISTORY: Positive for hypertension and heart disease. History And Physical [address] [address] NAME: OTIS HENRY : [birth year] STATUS : ADM IN [facility]#: [id number] AGE: 86 ADM/REG DATE : 10/10/16 MR#: [id number] REPORT SERV DATE: 10/10/16 DICTATED BY: RIGOBERTO KELLER DATE: 10/10/16 REPORT STATUS : Draft TRANSCRIBED BY: HEMANT DATE: 10/10/16 REVIEW OF SYSTEMS: Impossible to do since the patient is lethargic and difficult to arose, but she just was able to tell that she does not have chest pain. PHYSICAL EXAMINATION: GENERAL: Very thin female, very lethargic, resting quietly, has very slow reactions to answers. She is able to follow simple commands, but then she goes to sleep again. VITAL SIGNS: Blood pressure 142/89, heart rate fluctuates from 120 to 140 in atrial fibrillation, temperature 97.9, respiratory rate 14, oxygen saturation 98% on room air. HEENT: Head atraumatic, normocephalic. Conjunctivae clear. Pupils are equal, reactive to light, and accommodation. Extraocular muscles are intact. NECK: Supple. Trachea is midline. No supraclavicular or cervical lymphadenopathy. LUNGS: Severely diminished breath sounds bilaterally. Decreased respiratory effort. CARDIOVASCULAR SYSTEM: Irregularly irregular rate and rhythm. Point of maximal impulse not displaced. ABDOMEN: Soft. There is no tenderness to palpation in the abdomen. There is no guarding, no rebound. Slightly diminished bowel sounds. EXTREMITIES: No clubbing, cyanosis, or edema. SKIN: Normal color, decreased turgor. NEUROLOGIC: She is lethargic, but arousable. Her muscle strength is 2/5 bilaterally on upper and lower extremities. There is no any focal deficit. PSYCHIATRIC: Flat affect. She can answer simple questions. LABORATORY RESULTS: Her laboratory results which were done at [facility] are already dictated above. ASSESSMENT AND PLAN: This is a very pleasant 86-year-old female, who presented with several problems. 1. Decreased level of consciousness. 2. Atrial fibrillation with rapid ventricular response. 3. Urinary tract infection. 4. Failure to thrive. 5. Urinary tract infection. 6. Recent hip surgery. For her atrial fibrillation with rapid ventricular response, we will start her on Cardizem drip per protocol. I will recheck her basic metabolic panel and magnesium level now, and if necessary, we will replace it by electrolyte protocol. We will also start her on metoprolol 25 p.o. b.i.d. in the hope to wean Cardizem drip. We will order echocardiogram and consult finance business partner. Regarding her UTI, the patient had urine culture and blood cultures done at the [facility]. We will repeat blood cultures, and we will give her Rocephin for the UTI treatment. With failure to thrive, we will put her on Ensure with meals and soft mechanical diet. History And Physical [address] [address] NAME: OTIS HENRY : [birth year] STATUS : ADM IN [facility]#: [id number] AGE: 86 ADM/REG DATE : 10/10/16 MR#: [id number] REPORT SERV DATE: 10/10/16 DICTATED BY: RIGOBERTO KELLER DATE: 10/10/16 REPORT STATUS : Draft TRANSCRIBED BY: MODL DATE: 10/10/16 Also, I discussed with the patient in the presence of her daughter regarding her code status. The patient's daughter reported that the patient always wanted to be do not resuscitate. She did not want any aggressive measures. I will ask the patient in the presence of the daughter if she wants to be connected to a breathing machine, the patient said that no she does note. After asking multiple times, we asked her also if she would like to have chest compression in case of her heart stopped beating, she denied that she does not want to have any chest compression and she does not want to have any feeding tube. DO NOT RESUSCITATE form was signed and daughter confirmed it. We will check also her TSH since she has atrial fibrillation. We will ask pharmacy to manage her Coumadin anticoagulation. The patient's CT scan done at [facility] did not show any evidence of stroke and the patient does not have any focal weakness. This was discussed with family, also they were explained that this is because of severe weakness and failure to thrive. We may check also arterial blood gas on the patient, and my partner, Dr. Cobb, will see this patient starting tomorrow morning. Overall, poor prognosis secondary to decreased level of consciousness, UTI, and failure to thrive. We hope with urinary infection treatment the patient may have some improvement. MG/MODL Rigoberto Keller M.D. / [id number] CC: Mik Veloz M.D.
[~2016-10-10 16:33] MED LIST: DITRO5 PO; LEVOTHYROXIN88 MCG PO; NITROSTAT0.4 MG SL; NORV5 PO; PRIN10 PO
[2016-10-10] MEDS ORDERED: FERROUS SULF325 M1 PO (16:52)
[2016-10-10] MEDS ORDERED: LOP25 PO (16:52)
[2016-10-10] MEDS ORDERED: COUMADIN4 MG PO (16:52)
[2016-10-10] MEDS ORDERED: PRIN10 PO (16:53)
[2016-10-10] MEDS ORDERED: NORV5 PO (16:53)
[2016-10-10] MEDS ORDERED: DITRO5 PO (16:53)
[2016-10-10] MEDS ORDERED: LEVOTHYROXIN88 MCG PO (16:53)
[2016-10-10 19:50] LABS: INTERNATIONAL NORMAL RATI 3.1 UNITS (-); PROTIME (NOT ORD) 31.8 SEC (12.0-14.5)
[2016-10-10 20:07] LABS: BUN (BLOOD UREA NITROGEN) 22 MG/DL (6-23); CALCIUM, SERUM 8.4 MG/DL (8.5-10.4); CHLORIDE, SERUM 114 MMOL/L (96-112); CO2 (CARBON DIOXIDE) 24 MMOL/L (24-34); CREATININE 1.16 MG/DL (0.55-1.02); FERRITIN 196 NG/ML (8-252); GFR AFRICAN AMERICAN 49 ML/MIN (>=60); GFR NON AFRICAN AMERICAN 42 ML/MIN (>=60); GLUCOSE, SERUM 155 MG/DL (60-99); POTASSIUM, SERUM 4.1 MMOL/L (3.5-5.3); SODIUM, SERUM 146 MMOL/L (135-148); TROPONIN I <0.02 NG/ML (<0.05)
[2016-10-10 20:08] LABS: IRON BINDING CAPACITY 206 MCG/DL (225-410); IRON, SERUM 135 MCG/DL (35-150)
[2016-10-11 02:54] LABS: INTERNATIONAL NORMAL RATI 3.1 UNITS (-); PROTIME (NOT ORD) 31.7 SEC (12.0-14.5)
[2016-10-11 06:42] LABS: B NATRIURETIC PEPTIDE (BNP) 872.7 PG/ML (< 100.0)
[2016-10-11 08:09] LABS: GLYCOHEMOGLOBIN (HbA1c) 4.9 % (4.7-6.1)
[2016-10-11 10:56] LABS: ASCORBIC ACID (UR NOT ORDER) NEG (NEG); BILIRUBIN, URINE NEGATIVE (NEG); KETONE, URINE NEGATIVE (NEG); LEUKOCYTE ESTERASE(NOT OR LARGE (NEG)
[2016-10-12 04:19] LABS: BASOPHILS 0.3 %; BASOPHILS ABSOLUTE 0.01 10/3/uL (0.0-0.16); EOSINOPHILS 1.4 %; EOSINOPHILS ABSOLUTE 0.05 10/3/uL (0.0-0.53); IMMATURE GRANULOCYTES 0.3 %; IMMATURE GRANULOCYTES ABSOLUTE 0.01 10/3/uL (0.0-0.11); LYMPHOCYTES 51.3 %; LYMPHOCYTES ABSOLUTE 1.83 10/3/uL (0.67-4.30); MONOCYTES 10.1 %; MONOCYTES ABSOLUTE 0.36 10/3/uL (0.21-1.20); NEUTROPHILS 36.6 %; NEUTROPHILS ABSOLUTE 1.31 10/3/uL (2.02-8.40); PLATELET COUNT 94 10/3/uL (150-400); RED CELL COUNT 3.55 10/6/uL (4.0-5.6); WHITE BLOOD CELLS 3.6 10/3/uL (4.5-10.5)
[2016-10-12 04:21] LABS: HEMATOCRIT 37.1 % (36.0-48.0); MANUAL DIFF NO %; MEAN CORPUS HGB CONC 29.6 g/dL (32.0-36.0); MEAN CORPUSCULAR VOLUME 104.5 fL (80-100); RBC DISTRIBUTION WIDTH 23.4 % (12.0-16.0)
[2016-10-12 04:36] LABS: BUN (BLOOD UREA NITROGEN) 19 MG/DL (6-23); CALCIUM, SERUM 8.8 MG/DL (8.5-10.4); CHLORIDE, SERUM 114 MMOL/L (96-112); CO2 (CARBON DIOXIDE) 23 MMOL/L (24-34); CREATININE 1.02 MG/DL (0.55-1.02); GFR AFRICAN AMERICAN 57 ML/MIN (>=60); GFR NON AFRICAN AMERICAN 49 ML/MIN (>=60); POTASSIUM, SERUM 4.2 MMOL/L (3.5-5.3); SODIUM, SERUM 148 MMOL/L (135-148)
[2016-10-12 04:38] LABS: GLUCOSE, SERUM 120 MG/DL (60-99)
[2016-10-12 04:44] LABS: ANISOCYTOSIS 1+ (5-10/OIF) (0-5/OIF); GIANT PLATELET FEW; PLATELET ESTIMATE DEC (ADEQUATE); RBC MORPHOLOGY ABN (NORMAL)
[2016-10-12 05:11] LABS: INTERNATIONAL NORMAL RATI 3.6 UNITS (-); PROTIME (NOT ORD) 35.9 SEC (12.0-14.5)
[2016-10-12 06:51] LABS: PROCALCITONIN <0.05 ng/mL (<0.5)
[2016-10-13 04:22] LABS: BASOPHILS 0.2 %; BASOPHILS ABSOLUTE 0.01 10/3/uL (0.0-0.16); EOSINOPHILS 1.2 %; EOSINOPHILS ABSOLUTE 0.05 10/3/uL (0.0-0.53); HEMOGLOBIN 10.1 g/dL (12.0-16.0); IMMATURE GRANULOCYTES 0.5 %; IMMATURE GRANULOCYTES ABSOLUTE 0.02 10/3/uL (0.0-0.11); LYMPHOCYTES ABSOLUTE 1.95 10/3/uL (0.67-4.30); MEAN CORPUS HGB CONC 30.3 g/dL (32.0-36.0); MEAN CORPUSCULAR HEMOGLOB 31.5 pg (26.0-34.0); MEAN CORPUSCULAR VOLUME 103.7 fL (80-100); MONOCYTES 9.4 %; MONOCYTES ABSOLUTE 0.38 10/3/uL (0.21-1.20); NEUTROPHILS 40.7 %; NEUTROPHILS ABSOLUTE 1.65 10/3/uL (2.02-8.40); PLATELET COUNT 89 10/3/uL (150-400); RBC DISTRIBUTION WIDTH 23.5 % (12.0-16.0); RED CELL COUNT 3.21 10/6/uL (4.0-5.6); WHITE BLOOD CELLS 4.1 10/3/uL (4.5-10.5)
[2016-10-13 04:23] LABS: HEMATOCRIT 33.3 % (36.0-48.0); MANUAL DIFF NO %
[2016-10-13 04:28] LABS: INTERNATIONAL NORMAL RATI 3.3 UNITS (-); PROTIME (NOT ORD) 33.3 SEC (12.0-14.5)
[2016-10-13 04:35] LABS: BUN (BLOOD UREA NITROGEN) 19 MG/DL (6-23); CALCIUM, SERUM 8.6 MG/DL (8.5-10.4); CHLORIDE, SERUM 114 MMOL/L (96-112); CO2 (CARBON DIOXIDE) 25 MMOL/L (24-34); CREATININE 0.83 MG/DL (0.55-1.02); GFR AFRICAN AMERICAN 73 ML/MIN (>=60); GFR NON AFRICAN AMERICAN 63 ML/MIN (>=60); GLUCOSE, SERUM 113 MG/DL (60-99); POTASSIUM, SERUM 4.2 MMOL/L (3.5-5.3); SODIUM, SERUM 146 MMOL/L (135-148)
[2016-10-13 04:43] LABS: PLATELET ESTIMATE DEC (ADEQUATE); POIKILOCYTOSIS 1+ (5-10/OIF) (0-5/OIF)
[2016-10-13 04:44] LABS: RBC MORPHOLOGY ABN (NORMAL)
[2016-10-13 07:51] LABS: WBC (NOT ORDERED) (RFLEX) > 182 (0-5)
[2016-10-14 05:08] LABS: INTERNATIONAL NORMAL RATI 2.5 UNITS (-)
[2016-10-15 05:08] LABS: BASOPHILS 0.3 %; BASOPHILS ABSOLUTE 0.01 10/3/uL (0.0-0.16); EOSINOPHILS 2.1 %; EOSINOPHILS ABSOLUTE 0.08 10/3/uL (0.0-0.53); HEMATOCRIT 35.3 % (36.0-48.0); HEMOGLOBIN 10.5 g/dL (12.0-16.0); IMMATURE GRANULOCYTES 0.3 %; IMMATURE GRANULOCYTES ABSOLUTE 0.01 10/3/uL (0.0-0.11); LYMPHOCYTES 47.5 %; LYMPHOCYTES ABSOLUTE 1.84 10/3/uL (0.67-4.30); MEAN CORPUS HGB CONC 29.7 g/dL (32.0-36.0); MEAN CORPUSCULAR VOLUME 104.1 fL (80-100); MEAN PLATELET VOLUME 11.8 fL (9.2-13.0); MONOCYTES 11.1 %; MONOCYTES ABSOLUTE 0.43 10/3/uL (0.21-1.20); NEUTROPHILS 38.7 %; PLATELET COUNT 90 10/3/uL (150-400); RBC DISTRIBUTION WIDTH 23.1 % (12.0-16.0); RED CELL COUNT 3.39 10/6/uL (4.0-5.6); WHITE BLOOD CELLS 3.9 10/3/uL (4.5-10.5)
[2016-10-15 05:14] LABS: INTERNATIONAL NORMAL RATI 2.2 UNITS (-); PROTIME (NOT ORD) 23.9 SEC (12.0-14.5)
[2016-10-15 05:18] LABS: MANUAL DIFF NO %
[2016-10-15 05:32] LABS: CALCIUM, SERUM 8.9 MG/DL (8.5-10.4); CHLORIDE, SERUM 112 MMOL/L (96-112); CO2 (CARBON DIOXIDE) 25 MMOL/L (24-34); CREATININE 0.74 MG/DL (0.55-1.02); GFR AFRICAN AMERICAN 84 ML/MIN (>=60); GFR NON AFRICAN AMERICAN 72 ML/MIN (>=60); GLUCOSE, SERUM 103 MG/DL (60-99); POTASSIUM, SERUM 4.6 MMOL/L (3.5-5.3); SODIUM, SERUM 145 MMOL/L (135-148)
[2016-10-15 05:33] LABS: BUN (BLOOD UREA NITROGEN) 15 MG/DL (6-23)
[2016-10-15 06:16] LABS: MACROCYTES 1+ (5-10/OIF) (0-5/OIF); PLATELET ESTIMATE SLT DEC (ADEQUATE)
[2016-10-15 06:17] LABS: ACANTHOCYTES FEW (3-10/OIF); ELLIPTOCYTES 1+ (3-10/OIF) (0-2/OIF); HELMET CELLS OCC (0-2/OIF); POLYCHROMASIA 1+ (2-5/OIF) (0-1/OIF); SCHISTOCYTES OCC (0-2/OIF)
[2016-10-15 06:19] LABS: TEARDROP SHAPED RBCS OCC (0-2/OIF)
[2016-10-15 06:20] LABS: HYPOCHROMIA 1+ (3-10/OIF) (0-2/OIF); POIKILOCYTOSIS 1+ (5-10/OIF) (0-5/OIF); TARGET CELLS OCC (1-2/OIF) (0-1/OIF)
[2016-10-15 06:26] LABS: SPHEROCYTES OCC (0-2/OIF)
[2016-10-15] MEDS ORDERED: AMOXIL500 MG PO (09:36)
[2016-10-15] MEDS ORDERED: CARDCD120 PO (09:36)
== END 2016-10-15 11:35 | disposition home or self-care (01) | DRG 308 ==
LOC: 5NO 16:33
PROVIDERS: Hospitalist; Internal Medicine
DX: I48.1 Persistent atrial fibrillation (principal); G93.40 Encephalopathy, unspecified; E87.0 Hyperosmolality and hypernatremia; N39.0 Urinary tract infection, site not specified; I10 Essential (primary) hypertension; E03.9 Hypothyroidism, unspecified; I25.10 Atherosclerotic heart disease of native coronary artery without angina pectoris; Z91.81 History of falling; Z79.899 Other long term (current) drug therapy; Z79.01 Long term (current) use of anticoagulants; Z88.2 Allergy status to sulfonamides; Z88.5 Allergy status to narcotic agent; Z82.49 Family history of ischemic heart disease and other diseases of the circulatory system; R62.7 Adult failure to thrive; Z66 Do not resuscitate; Z98.890 Other specified postprocedural states; B95.61 Methicillin susceptible Staphylococcus aureus infection as the cause of diseases classified elsewhere
CPT/HCPCS: 71010; 80048; 81001; 82140; 82728; 82962; 83036; 83540; 83550; 83735; 83880; 84145; 84443; 84484; 85025; 85610; 87040; 87077; 87086; 87186; 93005; 93971; 97110-GP; 97162-GP; A9270-GY